=== PATIENT | male | born 1950 | race Hispanic/Latino ===

== ENCOUNTER 2017-04-11 20:19 | Emergency (ER) | payer MEDICARE ==
[2017-04-11] MEDS ORDERED: ASPIRIN 81MG TAB.CHEW ONE (20:36)
[2017-04-11 20:55] LABS: BASOPHILS % (AUTO) 0.4 % (0.0-5.0); EOSINOPHILS % (AUTO) 0.6 % (0.0-8.0); LYMPHOCYTES % (AUTO) 25.9 % (21.0-51.0); MEAN CORPUSCULAR HEMOGLOBIN 33.7 pg (27.0-33.0); MEAN CORPUSCULAR VOLUME 96.2 fL (79-99); MONOCYTES % (AUTO) 10.4 % (3.0-13.0); NEUTROPHILS % (AUTO) 62.7 % (40.0-77.0); PLATELET COUNT (AUTO) 222 K/uL (130-400); RED BLOOD CELL COUNT(AUTO) 4.26 MIL/uL (4.50-6.20); RED CELL DISTRIBUTION WIDTH 13.1 % (11.0-15.5); WHITE BLOOD COUNT (AUTO) 6.3 K/uL (4.8-10.8)
[2017-04-11 21:18] LABS: CREATININE 1.2 mg/dL (0.5-1.5); INR 0.9 (0.85-1.15); POTASSIUM 4.5 mmol/L (3.5-5.1); PROTHROMBIN TIME 9.5 SEC (9.6-11.6)
[2017-04-11 21:31] LABS: ALBUMIN 3.8 g/dL (3.5-5.0); BILIRUBIN,TOTAL 0.2 mg/dL (0.2-1.0); CREATINE KINASE MB 0.6 ng/mL (0.5-3.6); TOTAL PROTEIN, SERUM 7.3 g/dL (6.0-8.3)
[2017-04-11 22:42] LABS: AMPHET/METH SCREEN,URINE NEGATIVE (NEGATIVE); BARBITURATE SCREEN, URINE NEGATIVE (NEGATIVE); BENZODIAZEPINES SCREEN,URINE POSITIVE (NEGATIVE); CANNABINOID SCREEN,URINE POSITIVE (NEGATIVE); COCAINE SCREEN,URINE POSITIVE (NEGATIVE); OPIATE SCREEN,URINE NEGATIVE (NEGATIVE); PHENCYCLIDINE SCREEN,URINE NEGATIVE (NEGATIVE)
== END 2017-04-11 23:18 | disposition home or self-care (01) ==
LOC: EDH 20:19
DX: R07.9 Chest pain, unspecified (principal); T42.4X5A Adverse effect of benzodiazepines, initial encounter; T40.5X5A Adverse effect of cocaine, initial encounter; T40.7X5A Adverse effect of cannabis (derivatives), initial encounter; E11.65 Type 2 diabetes mellitus with hyperglycemia; I10 Essential (primary) hypertension; E78.5 Hyperlipidemia, unspecified; Y92.89 Other specified places as the place of occurrence of the external cause
CPT/HCPCS: 36415; 71045; 80053; 80305; 82550; 82553; 82948; 83874; 84484; 85025; 85610; 85730; 93005; 94761

== ENCOUNTER 2019-10-25 17:43 | Inpatient (IN) | payer MEDICARE ==
[~2019-10-25] VITALS: Ht 167.6 cm; Wt 86.0 kg
[2019-10-25 18:38] LABS: BASOPHILS % (AUTO) 0.1 % (0.0-5.0); EOSINOPHILS % (AUTO) 1.5 % (0.0-8.0); HEMATOCRIT 40.3 % (42-54); LYMPHOCYTES % (AUTO) 15.9 % (21.0-51.0); MEAN CORPUSCULAR HEMOGLOBIN 32.3 pg (27.0-33.0); MEAN CORPUSCULAR HGB CONC 35.2 g/dL (32.0-36.0); MEAN CORPUSCULAR VOLUME 91.8 fL (79-99); MONOCYTES % (AUTO) 10.7 % (3.0-13.0); NEUTROPHILS % (AUTO) 71.4 % (40.0-77.0); PLATELET COUNT (AUTO) 253 K/uL (130-400); RED BLOOD CELL COUNT(AUTO) 4.39 MIL/uL (4.50-6.20); RED CELL DISTRIBUTION WIDTH 11.1 % (11.0-15.5); WHITE BLOOD COUNT (AUTO) 7.6 K/uL (4.8-10.8)
[2019-10-25 18:42] LABS: POTASSIUM 3.8 mmol/L (3.5-5.1)
[2019-10-25 18:45] LABS: INR 0.92 (0.85-1.15)
[2019-10-25 18:48] LABS: BILIRUBIN,TOTAL 0.4 mg/dL (0.2-1.0); TOTAL PROTEIN, SERUM 7.3 g/dL (6.0-8.3)
[2019-10-25] MEDS: AZITHROMYCIN 500MG+NS 250ML 250 ML IV SCH (22:00)
[2019-10-25] MEDS ORDERED: ONDANSETRON HCL 4 MG/2 ML VIAL IV PRN (22:00)
[2019-10-25] MEDS ORDERED: DOXYCYCLINE 100MG+NS 250ML IV SCH (22:00)
[2019-10-25] MEDS ORDERED: ACETAMINOPHEN 325 MG TAB PO PRN ×2 (22:00)
[2019-10-25] MEDS ORDERED: ERGOCALCIFEROL (VITAMIN D2) 50,000 UNIT CAPSULE PO ONE (22:00)
[2019-10-25] MEDS: DOXYCYCLINE 100MG+NS 250ML 250 ML IV SCH (22:04)
[2019-10-25] MEDS ORDERED: ERGOCALCIFEROL (VITAMIN D2) 50,000 UNIT CAPSULE ONE (22:16)
[2019-10-25] MEDS ORDERED: AZITHROMYCIN 500MG+NS 250ML 250 ML IV ONE (22:16)
[2019-10-25] MEDS ORDERED: CEFTRIAXONE SODIUM 1 GM ONE (23:17)
[2019-10-25] MEDS ORDERED: DOXYCYCLINE 100MG+NS 250ML 250 ML IV ONE (23:17)
[2019-10-25 23:48] VITALS: BP 138/72
[2019-10-26] MEDS ORDERED: TRAM50TA4 PO (01:35)
[2019-10-26] MEDS ORDERED: NITR0.4T50 SL (01:35)
[2019-10-26] MEDS ORDERED: HYDR-4068 PO (01:35)
[2019-10-26] MEDS ORDERED: PHEN100P12 MC (01:35)
[2019-10-26] MEDS ORDERED: AZIT250T9 PO (01:35)
[2019-10-26] MEDS ORDERED: ALPR-412 PO (01:35)
[2019-10-26] MEDS ORDERED: GLYB1TAB28 PO (01:35)
[2019-10-26] MEDS ORDERED: ENAL5TAB17 PO (01:35)
[2019-10-26] MEDS ORDERED: DIPH25CA53 PO (01:35)
[2019-10-26] MEDS ORDERED: CHLO25CA5 PO (01:35)
[2019-10-26] MEDS ORDERED: LEVO100T12 PO (01:35)
[2019-10-26] MEDS ORDERED: TAMS-1 PO (01:35)
[2019-10-26] MEDS ORDERED: ACET-49 PO (01:35)
[2019-10-26] MEDS ORDERED: ESOM40CA54 PO (01:35)
[2019-10-26] MEDS ORDERED: PREG150C46 PO (01:35)
[2019-10-26] MEDS ORDERED: ZOLP5TAB8 PO (01:35)
--- NOTE | 2019-10-26 01:48 | NUR ---
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
[2019-10-26 03:11] VITALS: BP 135/70
[2019-10-26] MEDS ORDERED: ALPRAZOLAM 1 MG TAB PO PRN (03:15)
[2019-10-26] MEDS ORDERED: HYDROCODONE/ACETAMINOPHEN 10/325 MG TAB PO PRN (03:15)
[2019-10-26 04:46] LABS: HEMATOCRIT 36.5 % (42-54); LYMPHOCYTES % (AUTO) 18.7 % (21.0-51.0); MEAN CORPUSCULAR HEMOGLOBIN 31.9 pg (27.0-33.0); MEAN CORPUSCULAR HGB CONC 35.1 g/dL (32.0-36.0); MONOCYTES % (AUTO) 13.5 % (3.0-13.0); NEUTROPHILS % (AUTO) 67.4 % (40.0-77.0); PLATELET COUNT (AUTO) 230 K/uL (130-400); RED BLOOD CELL COUNT(AUTO) 4.01 MIL/uL (4.50-6.20); WHITE BLOOD COUNT (AUTO) 5.6 K/uL (4.8-10.8)
[2019-10-26 05:03] LABS: ALANINE AMINOTRANSFERASE 24 U/L (12-78); ALBUMIN 2.6 g/dL (3.5-5.0); ASPARTATE AMINOTRANSFERASE 26 U/L (10-37); BILIRUBIN,TOTAL 0.4 mg/dL (0.2-1.0); CARBON DIOXIDE 27 mmol/L (21-32); CHLORIDE 102 mmol/L (101-111); CREATININE 0.9 mg/dL (0.5-1.5); GLOMERULAR FILTR. RATE CALC 89 mL/min (>60); GLUCOSE,RANDOM 87 mg/dL (70-105); LACTATE DEHYDROGENASE 204 U/L (81-234); SODIUM SERUM 136 mmol/L (136-145); TOTAL PROTEIN, SERUM 6.7 g/dL (6.0-8.3); UREA NITROGEN, BLOOD 9 mg/dL (7-18)
[2019-10-26] MEDS: INSULIN HUMULIN R 100 UNIT/ML 3ML SQ SCH ×5 (06:22→21:09)
[2019-10-26 08:00] VITALS: BP 140/71
[2019-10-26] MEDS: ZINC SULFATE 220 CAPSULE PO SCH (09:00)
[2019-10-26] MEDS: PREGABALIN 75 MG CAPSULE PO SCH ×2 (09:00→21:01)
[2019-10-26] MEDS: ENALAPRIL MALEATE 5 MG TAB PO SCH (09:00)
[2019-10-26] MEDS: CHLORDIAZEPOXIDE HCL 25 MG CAP PO SCH (09:00)
[2019-10-26] MEDS: PHENYTOIN SODIUM 100 MG ERCAP PO SCH ×2 (09:00→21:00)
[2019-10-26] MEDS: TAMSULOSIN HCL 0.4 MG CAP.ER.24H PO SCH (09:00)
[2019-10-26] MEDS: METHYLPREDNISOLONE SOD SUCC 40MG/ML 1ML IVP SCH ×3 (09:00→20:59)
[2019-10-26] MEDS: TRAMADOL HCL 50 MG TABLET PO SCH ×2 (09:00→21:01)
[2019-10-26] MEDS: ASCORBIC ACID 500 MG TAB PO SCH (09:00)
[2019-10-26] MEDS: LEVOTHYROXINE 100 MCG TABLET PO SCH (09:00)
[2019-10-26] MEDS: ENOXAPARIN SODIUM 40 MG/0.4 ML SYRINGE SQ SCH (09:00)
[2019-10-26] MEDS: DOXYCYCLINE 100MG+NS 250ML 250 ML IV SCH ×2 (09:00→20:58)
[2019-10-26] MEDS: ACETYLCYSTEINE 600 MG CAPSULE PO SCH ×2 (09:00→21:01)
[2019-10-26 11:44] VITALS: BP 138/69
[2019-10-26 16:00] VITALS: BP 136/65
--- NOTE | 2019-10-26 16:48 | NUR ---
JILL PLAN CALLED PATIENT ROOM AND SISTER ON FACE SHEET NO ANSWER. ELENA WILL CONTINUE TO FOLLOW. Addendum: 10/26/19 at 1649 by CLEVE LEIJA RN CM Amended: Links added.
[2019-10-26 19:00] VITALS: BP 147/87
[2019-10-26] MEDS: ZOLPIDEM TARTRATE 5 MG TAB PO SCH (21:00)
[2019-10-26] MEDS: AZITHROMYCIN 500MG+NS 250ML 250 ML IV SCH (21:06)
[2019-10-26 23:00] VITALS: BP 135/72
[2019-10-27 03:00] VITALS: BP 121/66
[2019-10-27 05:50] LABS: HEMATOCRIT 36.5 % (42-54); MEAN CORPUSCULAR HEMOGLOBIN 32.3 pg (27.0-33.0); MEAN CORPUSCULAR HGB CONC 35.6 g/dL (32.0-36.0); MEAN CORPUSCULAR VOLUME 90.8 fL (79-99); MONOCYTES % (AUTO) 9.4 % (3.0-13.0); NEUTROPHILS % (AUTO) 80.2 % (40.0-77.0); PLATELET COUNT (AUTO) 283 K/uL (130-400); RED BLOOD CELL COUNT(AUTO) 4.02 MIL/uL (4.50-6.20); RED CELL DISTRIBUTION WIDTH 10.9 % (11.0-15.5); WHITE BLOOD COUNT (AUTO) 7.4 K/uL (4.8-10.8)
[2019-10-27 06:24] LABS: ALANINE AMINOTRANSFERASE 31 U/L (12-78); ALBUMIN 2.5 g/dL (3.5-5.0); ASPARTATE AMINOTRANSFERASE 29 U/L (10-37); BILIRUBIN,TOTAL 0.3 mg/dL (0.2-1.0); CARBON DIOXIDE 26 mmol/L (21-32); CHLORIDE 106 mmol/L (101-111); CREATININE 0.8 mg/dL (0.5-1.5); GLOMERULAR FILTR. RATE CALC 102 mL/min (>60); GLUCOSE,RANDOM 196 mg/dL (70-105); LACTATE DEHYDROGENASE 190 U/L (81-234); POTASSIUM 4.3 mmol/L (3.5-5.1); SODIUM SERUM 138 mmol/L (136-145); TOTAL PROTEIN, SERUM 6.9 g/dL (6.0-8.3); UREA NITROGEN, BLOOD 14 mg/dL (7-18)
[2019-10-27] MEDS: INSULIN HUMULIN R 100 UNIT/ML 3ML SQ SCH ×4 (06:33→21:41)
[2019-10-27] MEDS: PHENYTOIN SODIUM 100 MG ERCAP PO SCH ×2 (08:59→20:09)
[2019-10-27] MEDS: PREGABALIN 75 MG CAPSULE PO SCH ×2 (08:59→20:09)
[2019-10-27] MEDS: ACETYLCYSTEINE 600 MG CAPSULE PO SCH ×2 (08:59→20:10)
[2019-10-27] MEDS: ENALAPRIL MALEATE 5 MG TAB PO SCH (09:00)
[2019-10-27] MEDS: ZINC SULFATE 220 CAPSULE PO SCH (09:00)
[2019-10-27] MEDS: LEVOTHYROXINE 100 MCG TABLET PO SCH (09:00)
[2019-10-27] MEDS: TAMSULOSIN HCL 0.4 MG CAP.ER.24H PO SCH (09:01)
[2019-10-27] MEDS: TRAMADOL HCL 50 MG TABLET PO SCH ×2 (09:01→20:11)
[2019-10-27] MEDS: ENOXAPARIN SODIUM 40 MG/0.4 ML SYRINGE SQ SCH (09:03)
[2019-10-27] MEDS: ASCORBIC ACID 500 MG TAB PO SCH (09:03)
[2019-10-27] MEDS: CHLORDIAZEPOXIDE HCL 25 MG CAP PO SCH (09:04)
[2019-10-27] MEDS: DOXYCYCLINE 100MG+NS 250ML 250 ML IV SCH ×2 (09:06→20:09)
[2019-10-27] MEDS: METHYLPREDNISOLONE SOD SUCC 40MG/ML 1ML IVP SCH ×3 (09:06→20:09)
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
[2019-10-27 10:07] VITALS: BP 122/47
[2019-10-27 12:22] VITALS: BP 137/76
[2019-10-27 16:00] VITALS: BP 122/71
--- NOTE | 2019-10-27 16:07 | NUR ---
JILL PLAN NO ANSWER IN ROOM NO ANSWER TO CHAYA LIM CM WILL CONTINUE TO FOLLOW. Addendum: 10/27/19 at 1608 by CLEVE LEIJA RN CM Amended: Links added.
[2019-10-27] MEDS ORDERED: PHARMACY COMMUNICATION MISC SCH (17:45)
--- NOTE | 2019-10-27 20:00 | NUR ---
assessment note patient awake, alert, ox3, no sob, no c/o pain at this time, teach patient plan of care and expected outcome, patient verbalizes understanding via teach back
[2019-10-27] MEDS: ZOLPIDEM TARTRATE 5 MG TAB PO SCH (20:09)
[2019-10-27 20:24] VITALS: BP 126/66
[2019-10-27] MEDS: AZITHROMYCIN 500MG+NS 250ML 250 ML IV SCH (21:48)
[2019-10-28] VITALS (7 sets, daily range): BP systolic 109–165; BP diastolic 60–86
[2019-10-28 04:50] LABS: BASOPHILS % (AUTO) 0.1 % (0.0-5.0); HEMATOCRIT 35.9 % (42-54); LYMPHOCYTES % (AUTO) 10.6 % (21.0-51.0); MEAN CORPUSCULAR HEMOGLOBIN 31.5 pg (27.0-33.0); MEAN CORPUSCULAR HGB CONC 34.5 g/dL (32.0-36.0); MEAN CORPUSCULAR VOLUME 91.1 fL (79-99); MONOCYTES % (AUTO) 6.7 % (3.0-13.0); NEUTROPHILS % (AUTO) 82.2 % (40.0-77.0); PLATELET COUNT (AUTO) 322 K/uL (130-400); RED BLOOD CELL COUNT(AUTO) 3.94 MIL/uL (4.50-6.20); RED CELL DISTRIBUTION WIDTH 11.1 % (11.0-15.5); WHITE BLOOD COUNT (AUTO) 11.7 K/uL (4.8-10.8)
[2019-10-28 05:09] LABS: ALANINE AMINOTRANSFERASE 60 U/L (12-78); ALBUMIN 2.6 g/dL (3.5-5.0); ASPARTATE AMINOTRANSFERASE 45 U/L (10-37); BILIRUBIN,TOTAL 0.2 mg/dL (0.2-1.0); CARBON DIOXIDE 28 mmol/L (21-32); CHLORIDE 109 mmol/L (101-111); GLOMERULAR FILTR. RATE CALC 79 mL/min (>60); GLUCOSE,RANDOM 112 mg/dL (70-105); LACTATE DEHYDROGENASE 185 U/L (81-234); SODIUM SERUM 144 mmol/L (136-145); TOTAL PROTEIN, SERUM 6.5 g/dL (6.0-8.3); UREA NITROGEN, BLOOD 16 mg/dL (7-18)
[2019-10-28] MEDS: LEVOTHYROXINE 100 MCG TABLET PO SCH (05:52)
[2019-10-28] MEDS: INSULIN HUMULIN R 100 UNIT/ML 3ML SQ SCH ×4 (06:07→21:08)
[2019-10-28] MEDS: PREGABALIN 75 MG CAPSULE PO SCH ×2 (10:54→21:03)
[2019-10-28] MEDS: DOXYCYCLINE 100MG+NS 250ML 250 ML IV SCH ×2 (10:54→21:01)
[2019-10-28] MEDS: CHLORDIAZEPOXIDE HCL 25 MG CAP PO SCH (10:54)
[2019-10-28] MEDS: TAMSULOSIN HCL 0.4 MG CAP.ER.24H PO SCH (10:54)
[2019-10-28] MEDS: METHYLPREDNISOLONE SOD SUCC 40MG/ML 1ML IVP SCH ×3 (10:54→21:02)
[2019-10-28] MEDS: PHENYTOIN SODIUM 100 MG ERCAP PO SCH ×2 (10:54→21:02)
[2019-10-28] MEDS: ACETYLCYSTEINE 600 MG CAPSULE PO SCH ×2 (10:54→21:03)
[2019-10-28] MEDS: TRAMADOL HCL 50 MG TABLET PO SCH ×2 (10:56→21:04)
[2019-10-28] MEDS: ENALAPRIL MALEATE 5 MG TAB PO SCH (10:58)
[2019-10-28] MEDS: ZINC SULFATE 220 CAPSULE PO SCH (10:58)
[2019-10-28] MEDS: ASCORBIC ACID 500 MG TAB PO SCH (10:58)
[2019-10-28] MEDS: ENOXAPARIN SODIUM 40 MG/0.4 ML SYRINGE SQ SCH (11:02)
[2019-10-28] MEDS ORDERED: IOHEXOL-350 75 ML VIAL IV ONE (15:01)
[2019-10-28] MEDS: ZOLPIDEM TARTRATE 5 MG TAB PO SCH (21:02)
[2019-10-28] MEDS: AZITHROMYCIN 500MG+NS 250ML 250 ML IV SCH (22:45)
[2019-10-29 03:00] VITALS: BP 146/70
[2019-10-29] MEDS: LEVOTHYROXINE 100 MCG TABLET PO SCH (06:22)
[2019-10-29] MEDS: INSULIN HUMULIN R 100 UNIT/ML 3ML SQ SCH ×5 (06:26→21:32)
[2019-10-29 08:17] VITALS: BP 154/88
[2019-10-29] MEDS: TRAMADOL HCL 50 MG TABLET PO SCH ×2 (08:20→20:44)
[2019-10-29] MEDS: PHENYTOIN SODIUM 100 MG ERCAP PO SCH ×2 (08:20→20:42)
[2019-10-29] MEDS: ASCORBIC ACID 500 MG TAB PO SCH (08:20)
[2019-10-29] MEDS: ENALAPRIL MALEATE 5 MG TAB PO SCH (08:20)
[2019-10-29] MEDS: ACETYLCYSTEINE 600 MG CAPSULE PO SCH ×2 (08:20→20:43)
[2019-10-29] MEDS: METHYLPREDNISOLONE SOD SUCC 40MG/ML 1ML IVP SCH ×3 (08:21→20:42)
[2019-10-29] MEDS: DOXYCYCLINE 100MG+NS 250ML 250 ML IV SCH ×2 (08:21→20:42)
[2019-10-29] MEDS: CHLORDIAZEPOXIDE HCL 25 MG CAP PO SCH (08:21)
[2019-10-29] MEDS: TAMSULOSIN HCL 0.4 MG CAP.ER.24H PO SCH (08:21)
[2019-10-29] MEDS: PREGABALIN 75 MG CAPSULE PO SCH ×2 (08:22→20:44)
[2019-10-29] MEDS: ZINC SULFATE 220 CAPSULE PO SCH (08:23)
[2019-10-29] MEDS: ENOXAPARIN SODIUM 80 MG/0.8 ML SQ SCH (08:23)
[2019-10-29 08:37] LABS: BASOPHILS % (AUTO) 0.2 % (0.0-5.0); HEMATOCRIT 38.2 % (42-54); LYMPHOCYTES % (AUTO) 16.3 % (21.0-51.0); MEAN CORPUSCULAR HGB CONC 35.1 g/dL (32.0-36.0); MEAN CORPUSCULAR VOLUME 91.2 fL (79-99); MONOCYTES % (AUTO) 8.9 % (3.0-13.0); NEUTROPHILS % (AUTO) 73.8 % (40.0-77.0); PLATELET COUNT (AUTO) 329 K/uL (130-400); RED BLOOD CELL COUNT(AUTO) 4.19 MIL/uL (4.50-6.20); RED CELL DISTRIBUTION WIDTH 11.1 % (11.0-15.5); WHITE BLOOD COUNT (AUTO) 9.9 K/uL (4.8-10.8)
[2019-10-29 08:53] LABS: ALBUMIN 2.8 g/dL (3.5-5.0); BILIRUBIN,TOTAL 0.3 mg/dL (0.2-1.0); CREATININE 0.8 mg/dL (0.5-1.5); POTASSIUM 3.6 mmol/L (3.5-5.1); TOTAL PROTEIN, SERUM 6.9 g/dL (6.0-8.3)
[2019-10-29 09:00] LABS: B-TYPE NATRIURETIC PEPTIDE 119 pg/mL (0-100)
[2019-10-29 12:03] VITALS: BP 146/73
[2019-10-29 15:53] VITALS: BP 151/85
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
[2019-10-29 20:00] VITALS: BP 142/81
[2019-10-29] MEDS: ZOLPIDEM TARTRATE 5 MG TAB PO SCH (20:43)
[2019-10-29] MEDS ORDERED: INSULIN GLARGINE 100 UNITS/ML 10 ML VIAL SQ SCH (21:00)
[2019-10-29] MEDS ORDERED: DEXTROSE 50%-WATER 50 ML DISP.SYRIN IV PRN (21:00)
[2019-10-29] MEDS ORDERED: GLUCAGON 1MG KIT 1 MG ML IM PRN (21:00)
[2019-10-29] MEDS: AZITHROMYCIN 500MG+NS 250ML 250 ML IV SCH (21:33)
[2019-10-29 23:39] VITALS: BP 148/85
[2019-10-30 03:32] VITALS: BP 131/74
[2019-10-30] MEDS: LEVOTHYROXINE 100 MCG TABLET PO SCH (06:20)
[2019-10-30] MEDS: INSULIN HUMULIN R 100 UNIT/ML 3ML SQ SCH ×6 (06:25→20:41)
[2019-10-30] MEDS: DOXYCYCLINE 100MG+NS 250ML 250 ML IV SCH ×2 (08:03→20:35)
[2019-10-30] MEDS: PREGABALIN 75 MG CAPSULE PO SCH ×2 (08:04→20:37)
[2019-10-30] MEDS: TAMSULOSIN HCL 0.4 MG CAP.ER.24H PO SCH (08:04)
[2019-10-30] MEDS: ZINC SULFATE 220 CAPSULE PO SCH (08:04)
[2019-10-30] MEDS: TRAMADOL HCL 50 MG TABLET PO SCH ×2 (08:04→20:40)
[2019-10-30] MEDS: CHLORDIAZEPOXIDE HCL 25 MG CAP PO SCH (08:04)
[2019-10-30] MEDS: ACETYLCYSTEINE 600 MG CAPSULE PO SCH ×2 (08:04→20:37)
[2019-10-30] MEDS: ENALAPRIL MALEATE 5 MG TAB PO SCH (08:04)
[2019-10-30] MEDS: ASCORBIC ACID 500 MG TAB PO SCH (08:04)
[2019-10-30] MEDS: PHENYTOIN SODIUM 100 MG ERCAP PO SCH ×2 (08:04→20:37)
[2019-10-30] MEDS: ENOXAPARIN SODIUM 80 MG/0.8 ML SQ SCH (08:05)
[2019-10-30] MEDS: METHYLPREDNISOLONE SOD SUCC 40MG/ML 1ML IVP SCH (08:05)
[2019-10-30 08:15] VITALS: BP 139/69
[2019-10-30] MEDS: DEXAMETHASONE SOD PHOSPHATE 4 MG/ML 1ML VIAL IVP SCH ×2 (09:00→20:39)
[2019-10-30] MEDS ORDERED: LACTULOSE 20 GM/30 ML UDCUP PO SCH (09:30)
[2019-10-30] MEDS ORDERED: LACTULOSE 20 GM/30 ML UDCUP ONE (09:33)
--- NOTE | 2019-10-30 09:55 | NUR ---
Dr Hines rounded on patient, encouraged to prone; will receive 2 units of plasma today & resp therapist 6 min walk test, pending discharge if passes; doesn't qualify for remdesevir, using oxygen prn. proning @ this time; vss; will continue to monitor.
[2019-10-30] MEDS ORDERED: SODIUM CHLORIDE 0.9% 250 ML IV ONE (10:42)
[2019-10-30 12:12] VITALS: BP 137/75
--- NOTE | 2019-10-30 14:02 | NUR ---
DC PLAN CALLED MULTIPLE TIME NO ANSWER. CM WILL CONTINUE TO FOLLOW. Addendum: 10/30/19 at 1404 by CLEVE LEIJA RN CM Amended: Links added.
[2019-10-30 16:02] VITALS: BP 157/80
[2019-10-30] MEDS ORDERED: FLU VACC QS2020-21(6MOS UP)/PF 60 MCG/0.5 ML ML IM ONE (16:45)
--- NOTE | 2019-10-30 18:09 | NUR ---
Patient to 86% on room air per respiratory therapist; made aware, new order for case management consult for home oxygen.
[2019-10-30 19:55] VITALS: BP 164/100
[2019-10-30] MEDS ORDERED: HYDRALAZINE HCL 20 MG/ML VIAL IV PRN (20:15)
[2019-10-30] MEDS: ZOLPIDEM TARTRATE 5 MG TAB PO SCH (20:37)
[2019-10-30] MEDS ORDERED: INSULIN GLARGINE 100 UNITS/ML 10 ML VIAL SQ SCH (21:00)
--- NOTE | 2019-10-30 21:00 | NUR ---
Elevated Bp On assessment BP 164/100, patient denies any additional symptoms at this time. YUE White informed with new order to give Hydralazine 10mg IVP for SBP grater than 160.
[2019-10-30 23:46] VITALS: BP 157/87
[2019-10-31 03:38] VITALS: BP 136/66
[2019-10-31] MEDS: LEVOTHYROXINE 100 MCG TABLET PO SCH (06:04)
[2019-10-31] MEDS: INSULIN HUMULIN R 100 UNIT/ML 3ML SQ SCH ×6 (06:09→17:35)
[2019-10-31] MEDS: CHLORDIAZEPOXIDE HCL 25 MG CAP PO SCH (08:47)
[2019-10-31] MEDS: TAMSULOSIN HCL 0.4 MG CAP.ER.24H PO SCH (08:47)
[2019-10-31] MEDS: ENALAPRIL MALEATE 5 MG TAB PO SCH (08:47)
[2019-10-31] MEDS: PHENYTOIN SODIUM 100 MG ERCAP PO SCH (08:47)
[2019-10-31] MEDS: ZINC SULFATE 220 CAPSULE PO SCH (08:47)
[2019-10-31] MEDS: ASCORBIC ACID 500 MG TAB PO SCH (08:47)
[2019-10-31] MEDS: PREGABALIN 75 MG CAPSULE PO SCH (08:48)
[2019-10-31] MEDS: ACETYLCYSTEINE 600 MG CAPSULE PO SCH (08:48)
[2019-10-31] MEDS: DEXAMETHASONE SOD PHOSPHATE 4 MG/ML 1ML VIAL IVP SCH (08:49)
[2019-10-31] MEDS: DOXYCYCLINE 100MG+NS 250ML 250 ML IV SCH (08:52)
[2019-10-31] MEDS: TRAMADOL HCL 50 MG TABLET PO SCH (08:52)
[2019-10-31] MEDS: ENOXAPARIN SODIUM 80 MG/0.8 ML SQ SCH (08:54)
[2019-10-31 09:15] VITALS: BP 141/67
[2019-10-31 12:06] VITALS: BP 130/66
[2019-10-31] MEDS ORDERED: INSU3INS3 SQ (14:03)
[2019-10-31] MEDS ORDERED: [UNRECOGNIZED DRUG - CODE] MC (14:03)
[2019-10-31] MEDS ORDERED: INSU200I SQ (14:03)
[2019-10-31] MEDS ORDERED: APIX2.5T PO (14:03)
[2019-10-31] MEDS ORDERED: DEXA6TAB PO (14:03)
[2019-10-31] MEDS ORDERED: ASCO500T20 PO (14:03)
[2019-10-31] MEDS ORDERED: ZINC220C6 PO (14:03)
--- NOTE | 2019-10-31 14:31 | NUR ---
DC PLAN VISITED WITH PATIENT. PATIENT LIVES ALONE. SEMI INDEPENDENT ABLE TO PERFORM ADL'S. PATIENT HAS NO DME'S. PROVIDER 23 HOURS. FEELS SAFE TO RETURN HOME. Addendum: 10/31/19 at 1432 by CLEVE LEIJA RN CM Amended: Links added.
--- NOTE | 2019-10-31 14:32 | NUR ---
DC PLAN . VISITED WITH PATIENT. PATIENT QUALIFIED FOR . GOT VERBAL CONSENT FOR [facility] HOME PATIENT. PATIENT COVID POSITIVE. PACKET SENT TO [facility] PATIENT. GOT CONCENTRATOR AND OXYGEN TANK PLACED IN NURSES STATION. GAVE INFO TO NURSE WITH FORM THAT PATIENT NEEDS TO SIGN. TANK TO BE RETURNED SOON POSSIBLE. CONCENTRATOR TO BE RETURN ONCE HIS EQUIPMENT IS DELIVERED FROM [facility] PATIENT. Addendum: 10/31/19 at 1441 by CLEVE LEIJA RN CM Amended: Links added.
--- NOTE | 2019-10-31 15:20 | NUR ---
D/c As per Dr Hines pt to be discharged after dinner for self administration and education of insulin
[2019-10-31 16:49] VITALS: BP 146/79
--- NOTE | 2019-10-31 17:44 | NUR ---
Insulin education Insulin education rendered. Pt verbalized understanding. Return demonstration provided.
== END 2019-10-31 18:28 | disposition home or self-care (01) | DRG 177 ==
LOC: EDH 17:43 → EDHIP 21:48 → 2AH 23:40
PROVIDERS: ADMIT Internal Medicine; ATTEND Internal Medicine
PROC: XW13325 Transfusion of Convalescent Plasma (Nonautologous) into Peripheral Vein, Percutaneous Approach, New Technology Group 5 (ICD-10-PCS; principal; 2019-10-30)
PROC: 3E02340 Introduction of Influenza Vaccine into Muscle, Percutaneous Approach (ICD-10-PCS; 2019-10-30)
DX: U07.1 COVID-19 (principal); J96.01 Acute respiratory failure with hypoxia; J12.89 Other viral pneumonia; E78.5 Hyperlipidemia, unspecified; E11.9 Type 2 diabetes mellitus without complications; I10 Essential (primary) hypertension; Z79.01 Long term (current) use of anticoagulants; Z79.4 Long term (current) use of insulin; Z23 Encounter for immunization
CPT/HCPCS: 36415; 36430; 71045; 71275; 80053; 82728; 82948; 83615; 83880; 84145; 84484; 85025; 85378; 85610; 85730; 86140; 86850; 86900; 86901; 86927; 87040; 87426; 87804; 93005; 94760; G0378; J0360; J0456; J0696; J1100; J1650; J1815; J2920; J3490; J7050; Q2035; Q9967

== ENCOUNTER 2021-09-27 19:33 | Emergency (ER) | payer OTHER, MEDICARE ==
[~2021-09-27] VITALS: Ht 165.1 cm; Wt 90.7 kg
[~2021-09-27 19:33] MED LIST: ACET-49 PO; ALPR-412 PO; APIX2.5T PO; ASCO500T20 PO; CHLO25CA5 PO; DEXA6TAB PO; DIPH25CA53 PO; ENAL5TAB17 PO; ESOM40CA54 PO; HYDR-4068 PO; INSU200I SQ; INSU3INS3 SQ; LEVO100T12 PO; NITR0.4T50 SL; PHEN100P12 MC; PREG150C46 PO; TAMS-1 PO; TRAM50TA4 PO; ZINC220C6 PO; ZOLP5TAB8 PO; [UNRECOGNIZED DRUG - CODE] MC
[2021-09-27 19:54] LABS: BASOPHILS % (AUTO) 0.1 % (0.0-5.0); EOSINOPHILS % (AUTO) 1.1 % (0.0-8.0); LYMPHOCYTES % (AUTO) 26.5 % (21.0-51.0); MEAN CORPUSCULAR HEMOGLOBIN 32.7 pg (27.0-33.0); MEAN CORPUSCULAR HGB CONC 35.4 g/dL (32.0-36.0); MEAN CORPUSCULAR VOLUME 92.3 fL (79-99); MONOCYTES % (AUTO) 6.3 % (3.0-13.0); NEUTROPHILS % (AUTO) 65.6 % (40.0-77.0); PLATELET COUNT (AUTO) 223 K/uL (130-400); RED BLOOD CELL COUNT(AUTO) 4.44 MIL/uL (4.50-6.20); RED CELL DISTRIBUTION WIDTH 11.9 % (11.0-15.5); WHITE BLOOD COUNT (AUTO) 7.9 K/uL (4.8-10.8)
[2021-09-27] MEDS ORDERED: KETOROLAC 15MG/ML VIAL (15MG/ML) IV ONE (20:00)
[2021-09-27] MEDS ORDERED: LORAZEPAM 2 MG/ML 1 ML VIAL IVP ONE (20:00)
[2021-09-27 20:06] LABS: CREATININE 0.8 mg/dL (0.5-1.5); POTASSIUM 4.1 mmol/L (3.5-5.1)
[2021-09-27 20:12] LABS: ALBUMIN 3.6 g/dL (3.5-5.0); TOTAL PROTEIN, SERUM 6.9 g/dL (6.0-8.3)
[2021-09-27 20:12] LABS: APPEARANCE,URINE CLEAR (CLEAR); BILIRUBIN,URINE NEGATIVE (NEGATIVE); COLOR,URINE YELLOW (YELLOW); GLUCOSE, URINE (UA) 100 mg/dL (NEGATIVE); KETONES,URINE 15 mg/dL (NEGATIVE); LEUKOCYTE ESTERASE ,URINE NEGATIVE (NEGATIVE); NITRATE,URINE NEGATIVE (NEGATIVE); OCCULT BLOOD,URINE NEGATIVE (NEGATIVE); PROTEIN,URINE NEGATIVE (NEGATIVE); UROBILINOGEN,URINE 0.2 mg/dL (0.2-1.0)
[2021-09-27 20:27] LABS: BACTERIA,URINE None Seen /HPF (None Seen); RBC,URINE 0-1 /HPF (0-1); SQUAMOUS EPITHELIAL CELL,UR Rare /HPF (0-2); WBC,URINE 0-1 /HPF (0-1)
[2021-09-27] MEDS ORDERED: DIAZEPAM 5 MG/ML 2 ML SYG IVP ONE (20:30)
[2021-09-27] MEDS ORDERED: HYD25 PO (20:51)
[2021-09-27 20:57] VITALS: BP 140/75
== END 2021-09-27 21:03 | disposition home or self-care (01) ==
LOC: EDH 19:33
DX: F43.9 Reaction to severe stress, unspecified (principal); R07.89 Other chest pain; E11.9 Type 2 diabetes mellitus without complications; E78.00 Pure hypercholesterolemia, unspecified; F41.9 Anxiety disorder, unspecified; I10 Essential (primary) hypertension; Z79.01 Long term (current) use of anticoagulants; Z79.1 Long term (current) use of non-steroidal anti-inflammatories (NSAID); Z79.52 Long term (current) use of systemic steroids; Z79.899 Other long term (current) drug therapy; Z90.49 Acquired absence of other specified parts of digestive tract
CPT/HCPCS: 99285; 96374; 71045; 96375; 84484; 80053; 85025; 81001; 36415; 93005; J3360; J1885

== ENCOUNTER → 2023-03-27 | Outpatient (CLI) | payer MEDICARE ==
[~2023-03-27] MED LIST changes: +ENAL-87 PO; -ENAL5TAB17 PO; +HYD25 PO; +HYDR-3421 PO; -PREG150C46 PO; +PREG150C47 PO
== END | disposition home or self-care (01) ==
LOC: SHCH 11:18
PROVIDERS: ATTEND Internal Medicine
DX: I35.0 Nonrheumatic aortic (valve) stenosis (principal); R07.9 Chest pain, unspecified
CPT/HCPCS: 93306

== ENCOUNTER → 2023-08-23 | Outpatient (CLI) | payer OTHER, MEDICARE ==
[~2023-08-23] MED LIST changes: -ESOM40CA54 PO; +ESOM40CA66 PO
== END | disposition home or self-care (01) ==
LOC: RAH 09:20
PROVIDERS: ATTEND Internal Medicine
DX: I25.119 Atherosclerotic heart disease of native coronary artery with unspecified angina pectoris (principal); R07.9 Chest pain, unspecified
CPT/HCPCS: 78452; 96374; 93017; A9500 ×2

== ENCOUNTER 2023-11-08 05:49 | Emergency (ER) | payer MEDICARE ==
[~2023-11-08] VITALS: Ht 165.1 cm; Wt 88.5 kg
[~2023-11-08 05:49] MED LIST changes: -ACET-49 PO; -ALPR-412 PO; -APIX2.5T PO; -ASCO500T20 PO; +ATOR40TA71 PO; +CELE-146 PO; -DEXA6TAB PO; -DIPH25CA53 PO; -ENAL-87 PO; +ENAL-91 PO; -ESOM40CA66 PO; +GLIP5TAB15 PO; -HYD25 PO; -HYDR-3421 PO; -HYDR-4068 PO; +INSU100V12 SQ; -INSU200I SQ; -INSU3INS3 SQ; +METF-444 PO; +OMEP20CA12 PO; -PHEN100P12 MC; +PHENYTOIN PO; +RANO500T6 PO; -TRAM50TA4 PO; -ZINC220C6 PO; +ZOLP10TA2 PO; -ZOLP5TAB8 PO; -[UNRECOGNIZED DRUG - CODE] MC
[2023-11-08 05:50] VITALS: BP 145/75; PULSE 61; RESP 16; TEMP 97.8
[2023-11-08] MEDS: LIDOCAINE HCL 2% VISCOUS 15 ML UDCUP PO ONE (06:09)
[2023-11-08] MEDS ORDERED: CLIN-141 PO (06:11)
[2023-11-08] MEDS ORDERED: TYL2 PO (06:11)
== END 2023-11-08 06:41 | disposition home or self-care (01) ==
LOC: EDH 05:49
DX: S02.5XXA Fracture of tooth (traumatic), initial encounter for closed fracture (principal); E11.9 Type 2 diabetes mellitus without complications; E78.00 Pure hypercholesterolemia, unspecified; I10 Essential (primary) hypertension; J44.9 Chronic obstructive pulmonary disease, unspecified; Z79.4 Long term (current) use of insulin; Z79.84 Long term (current) use of oral hypoglycemic drugs; Z79.890 Hormone replacement therapy; Z90.49 Acquired absence of other specified parts of digestive tract; X58.XXXA Exposure to other specified factors, initial encounter; Y93.89 Activity, other specified; Y92.89 Other specified places as the place of occurrence of the external cause; Y99.8 Other external cause status
CPT/HCPCS: 99282